=== PATIENT | female | born 1985 | race Caucasian/White ===

== ENCOUNTER 2024-08-09 21:28 | Outpatient (REF) | payer MEDICAID, SELFPAY ==
[2024-08-09 15:04] LABS: MCH 34.9 pg (27.0-33.0); MCHC 34.1 % (32.0-36.0); MCV 102 fL (80-95); MPV 11.7 fL (8.0-11.0); Platelet Count 236 10^3/uL (130-400); RDW 12.2 % (11.7-14.6); RDW-SD 46.4 fL; WBC 7.61 10^3/uL (4.4-10.8)
[2024-08-09 15:38] LABS: ALT 92 U/L (14-59); AST 86 U/L (15-37); Alkaline Phosphatase 78 U/L (46-116); BUN 9 mg/dL (7-18); Bilirubin, Total 0.34 mg/dL (0.2-1.0); CREATININE 0.9 mg/dL (0.55-1.02); Calcium 9.7 mg/dL (8.5-10.1); Calculated LDL 85 mg/dL (<100); Chloride 104 mmol/L (98-107); Cholesterol 167 mg/dL (<200); Estimated GFR 84.44 (mL/min/1.73m2); Glucose 108 mg/dL (74-106); HDL Cholesterol 42 mg/dL (40-60); Potassium 4.9 mmol/L (3.5-5.1); Sodium 140 mmol/L (136-145); TSH (W/Ref FT4) 1.05 uIU/mL (0.36-3.74); Total Protein 7.5 g/dL (6.4-8.2); Triglyceride 201 mg/dL (<150)
== END 2024-08-09 21:29 | disposition home or self-care (01) ==
LOC: NCHCN 21:28
PROVIDERS: PCP Family Medicine; Visit Provider Family Medicine
DX: Z13.220 Encounter for screening for lipoid disorders (principal); E66.9 Obesity, unspecified
CPT/HCPCS: 80053; 80061; 85027; 84443

== ENCOUNTER 2024-08-24 10:16 | Outpatient (REF) | payer MEDICAID, SELFPAY ==
--- NOTE | 2024-08-24 08:30 | PAPFT_PTH ---
PATIENT: Claire Araujo LOC: [facility] U#:[id number] AGE/SX: 38/F ROOM: RE08/24/[address]: GIGI: 1985 BED: DIS: 08/24/2024 SPEC #: [id number] RECD: 08/24/24 17:06 STATUS: SANCHEZ TRUJILLO #: [id number] ROSELYN: 08/24/24 08:[address]: Adrienne Lorenz DEPT: [facility] Cytology RECD BY: Laury Aguilar Tissues: 1 - CX/ENDOCX FOR PAP SMEARS Procedures: PAP THIN PREP/[facility] Screening HPV DNA PROBE Comments: [id number] (HPV 16 & 18/45)
== END 2024-08-24 10:17 | disposition home or self-care (01) ==
LOC: NCHCN 10:16
PROVIDERS: PCP Family Medicine; Visit Provider Family Medicine
DX: Z12.4 Encounter for screening for malignant neoplasm of cervix (principal)
CPT/HCPCS: 88142; 87624